=== PATIENT | male | born 1995 | race Caucasian/White ===

== ENCOUNTER → 2021-06-11 | Outpatient (CLI) | payer OTHER ==
--- NOTE | 2021-06-11 19:32 | REP ---
INDICATION: SUDDEN ANOOP HIP PAIN. COMPARISON: None. TECHNIQUE: AP and frogleg views of each hip are acquired. Total of four views. FINDINGS: Femoral heads are smooth and rounded hip joint spaces are preserved. Head neck junction morphology is normal bilaterally. Periarticular soft tissues are unremarkable. No fracture or arthropathy is evident. Joint space is preserved. No erosive changes. Sacrum and SI joints are unremarkable as visualized. IMPRESSION: Negative bilateral hip study. <Electronically signed by Noé Gray > 06/11/211927
== END ==
LOC: M RAD 19:01
PROVIDERS: ATTEND Physician Assistant Medical
DX: M25.551 Pain in right hip (principal); M25.552 Pain in left hip